=== PATIENT | female | born 1965 | race Caucasian/White ===

== ENCOUNTER 2019-06-22 13:31 | Outpatient (CLI) | payer OTHER, SELFPAY ==
--- NOTE | 2019-06-22 13:44 | XR_ITS ---
WS: [id number] PROCEDURE: XR chest 2V* [id number] CLINICAL INFORMATION: CHEST PAIN COMPARISON: None. FINDINGS: Heart: Normal cardiac silhouette. Lungs: Lungs are clear. No consolidation or pleural fluid. Chronic emphysematous changes. Incidental azygos fissure right upper lobe. Bones: Mild thoracic curve convex left. XR/XR chest 2V* [id number] IMPRESSION: No acute chest findings.
== END 2019-06-22 13:32 | disposition home or self-care (01) ==
PROVIDERS: Family Provider Family Medicine; PCP Family Medicine; Visit Provider Family Medicine
DX: R07.9 Chest pain, unspecified (principal)
CPT/HCPCS: 71046

== ENCOUNTER 2019-10-07 10:37 | Outpatient (CLI) | payer OTHER, SELFPAY ==
--- NOTE | 2019-10-07 | US_ITS ---
WS: [id number] BILATERAL DIGITAL DIAGNOSTIC MAMMOGRAM MAMMOGRAPHY WITH CAD CLINICAL INFORMATION: FOLLOW UP FROM 06/02 LT BREAST COMPARISON: 06/10/2018 and 06/04/2017 TECHNIQUE: Bilateral CC, MLO, and ML views. FINDINGS: The breasts are composed of heterogeneous fibroglandular density, which can limit the detection of sm all underlying mass lesions. New well-circumscribed 9 mm ovoid lesion upper outer right breast may represent a cyst and will be fu rther evaluated with ultrasound. Left breast is unchanged in appearance. ULTRASOUND BREAST BILATERAL TECHNIQUE: Ultrasound bilateral focused area of concern. CLINICAL INFORMATION: FOLLOW UP FROM 06/02 LT BREAST COMPARISON: None. FINDINGS: Ultrasound right breast at the 10:00 position. 2 cysts are visualized in this area. The lar gest measuring 9 x 7 mm and the smaller cyst measuring 3 x 4 mm. These have a simple benign appearanc e. Ultrasound left breast at the 10:00 position 1 cm from the nipple. Small cyst at the 10:00 position m easuring 10 x 8 mm. Additional tiny cyst at the 9:00 position measuring 4.9 x 3.5 mm. Additional well -circumscribed cyst at the 3:00 position measuring 3.7 x 3.8 mm. These have a benign appearance and r ecommend return to annual screening mammography. US/US breast BI limited* [id number] IMPRESSION: BI-RADS: 2-Benign FOLLOW UP: 1 Year Follow-up Recommend return to annual screening mammography.
--- NOTE | 2019-10-07 11:07 | MM_ITS ---
WS: [id number] BILATERAL DIGITAL DIAGNOSTIC MAMMOGRAM MAMMOGRAPHY WITH CAD CLINICAL INFORMATION: FOLLOW UP FROM 06/02 LT BREAST COMPARISON: 06/10/2018 and 06/04/2017 TECHNIQUE: Bilateral CC, MLO, and ML views. FINDINGS: The breasts are composed of heterogeneous fibroglandular density, which can limit the detection of sm all underlying mass lesions. New well-circumscribed 9 mm ovoid lesion upper outer right breast may represent a cyst and will be fu rther evaluated with ultrasound. Left breast is unchanged in appearance. ULTRASOUND BREAST BILATERAL TECHNIQUE: Ultrasound bilateral focused area of concern. CLINICAL INFORMATION: FOLLOW UP FROM 06/02 LT BREAST COMPARISON: None. FINDINGS: Ultrasound right breast at the 10:00 position. 2 cysts are visualized in this area. The lar gest measuring 9 x 7 mm and the smaller cyst measuring 3 x 4 mm. These have a simple benign appearanc e. Ultrasound left breast at the 10:00 position 1 cm from the nipple. Small cyst at the 10:00 position m easuring 10 x 8 mm. Additional tiny cyst at the 9:00 position measuring 4.9 x 3.5 mm. Additional well -circumscribed cyst at the 3:00 position measuring 3.7 x 3.8 mm. These have a benign appearance and r ecommend return to annual screening mammography. MM/[place] [id number] IMPRESSION: BI-RADS: 2-Benign FOLLOW UP: 1 Year Follow-up Recommend return to annual screening mammography.
== END 2019-10-07 10:38 | disposition home or self-care (01) ==
LOC: RADSHAW 10:37
PROVIDERS: Family Provider Family Medicine; PCP Family Medicine; Visit Provider Family Medicine
DX: N60.02 Solitary cyst of left breast (principal)
CPT/HCPCS: 76642; 77066

== ENCOUNTER 2020-03-05 09:57 | Emergency (ER) | payer OTHER, SELFPAY ==
[2020-03-05 10:04] VITALS: BP 121/80; PULSE 96; RESP 18; TEMP 37; O2SAT 95; BMI 24.8
--- NOTE | 2020-03-05 10:14 | ECG_ITS ---
[facility] Test Date: 2020-03-05 Pat Name: Melida Deal Department: Room: Gender: Female Rental Manager: : 1965 Requested By: Garcia Harmon Order Number: [id number] Liu MD: Yovanny Jack M.D. Measurements Intervals [place] Rate: 77 P: 67 AR: 156 QRS: 1 QRSD: 94 T: 47 QT: 367 QTc: 417 Interpretive Statements SINUS RHYTHM No previous ECG available for comparison Electronically Signed On 03-05-2020 19:05:40 CDT by Yovanny Jack M.D. [email or web address]
--- NOTE | 2020-03-05 10:19 | XRR_ITS ---
PROCEDURE INFORMATION: Exam: XR Chest, 1 View Exam date and time: 03/05/2020 10:54 AM Age: 54 years old Clinical indication: Smoker's cough; Additional info: Cough, covid positive TECHNIQUE: Imaging protocol: XR of the chest Views: 1 view. COMPARISON: CR XR chest 2V* [id number] 06/22/2019 1:55 PM FINDINGS: Lungs: Bilateral pulmonary opacities. No lobar consolidation. Pleural space: No pleural effusion. Heart/Mediastinum: Unremarkable. No cardiomegaly. Bones/joints: No acute findings. XR/XR chest 1V portable [id number] IMPRESSION: Bilateral pneumonia.
--- NOTE | 2020-03-05 10:25 | W.ED.CHESTPA ---
HPI - Chest Pain General: Chief Complaint: Chest Pain Stated Complaint: POSS COVID Time Seen by Provider: 03/05/20 10:14 History of Present Illness: HPI narrative: Patient arrives here with complaint about a productive cough that is turned to dry cough. Says she was seen by Dr. Casanova treated for sinus infection with Zithromax. Which she still taking. Did test positive last week at [facility] drive-through for COVID positive says she just did not feel good chest feels full. Says she is lost taste smell. Is also having diarrhea x4 days. History of COPD MD complaint: chest discomfort Onset (ago): day(s) Timing of current episode: constant Prior episodes: No Associated symptoms: Reports other (Diarrhea and cough also aches); Deny abdominal pain, dyspnea, fever(s), nausea or vomiting Treatment prior to arrival: other (Is on azithromycin) Review of Systems Const: Denies: fever(s), chills or body aches Eyes: Denies: change in vision or blurry vision ENMT: Denies: throat pain or nasal congestion Card: Denies: chest pain or dyspnea on exertion Resp: Reports: productive cough (Now nonproductive) and non-productive cough; Denies: dyspnea GI: Reports: diarrhea; Denies: abdominal pain, nausea or vomiting Musc: Denies: extremity pain Skin/Breast: Denies: rash Neuro: Denies: headache(s) Psych: Denies: anxiety or depression Arnold/Lymph: Denies: easy bruising Physical Exam Const: COMMON NORMALS: no acute distress, average body habitus and patient oriented x3 HENMT: COMMON NORMALS: normocephalic HEAD & SCALP: normal to inspection and normocephalic FACE & SINUS: normal facial exam Eye: COMMON NORMALS: conjunctivae normal GENERAL EYE: appearance normal, both eyes and all related structures CONJUNCTIVA: Yes conjunctivae normal Neck/C-Spine: COMMON NORMALS: no JVD Chest: COMMONS NORMALS: normal inspection of the chest Resp: COMMON NORMALS: normal respiratory effort Cardio: COMMON NORMALS: no JVD Extremity: COMMON NORMALS: normal to inspection and full ROM Neuro: COMMON NORMALS: patient oriented x3 Course Vital Signs: Vital signs: Vital Signs Temperature 98.6 F 03/05/20 10:04 Pulse Rate 75 03/05/20 11:59 Respiratory Rate 14 03/05/20 11:59 Blood Pressure 128/70 03/05/20 11:59 Pulse Oximetry 97 03/05/20 11:59 MDM - Chest Pain MDM Narrative: Medical decision making narrative: Discussed case with Dr. Coblert differential includes bacterial pneumonia bronchitis COPD COVID pneumonia. Patient is aware that if she worsens she is to follow back up here soon as possible Lab Data: Labs: Lab Results 03/05/20 03/05/20 03/05/20 Range/Units 10:30 10:45 10:45 WBC 5.0 (4.0-10.0) 10^3/ uL RBC 4.66 (4.1-5.3) 10^6/u L Hgb 13.8 (11.5-15.3) g/dL Hct 42.7 (37.0-47.0) % MCV 91.6 (81-99) fL MCH 29.6 (28.0-34.0) pg MCHC 32.3 (30.0-36.0) g/dL RDW 12.0 L (12.1-15.1) % Plt Count 179 (130-400) 10^3/c mm MPV 11.0 H (7.4-10.4) fL Neut % (Auto) 54.9 % Lymph % (Auto) 35.1 % [place] % (Auto) 9.4 % Eos % (Auto) 0.0 % Baso % (Auto) 0.4 % Neut # (Auto) 2.74 (1.8-7.7) 10^3/u L Lymph # (Auto) 1.8 (0.8-4.8) 10^3/u L [place] # (Auto) 0.5 (0.2-0.9) 10^3/u L Eos # (Auto) 0.0 (0.0-0.8) 10^3/u L Baso # (Auto) 0.0 (0.0-0.1) 10^3/u L Nucleated RBC % (a uto) 0 % Nucleated RBCs # 0.0 /100WBC D-Dimer (0-0.59) ug/mIFE U Sodium 141 (136-145) mmol/L Potassium 2.9 L (3.5-5.1) mmol/L Chloride 105 (98-107) mmol/L Carbon Dioxide 24 (22-29) mmol/L Anion Gap 14.9 (5-19) BUN 12 (6-20) mg/dL Creatinine 0.7 (0.5-0.9) mg/dL GFR Calculation 86.9 L (90-130) mL/min Glucose 124 H (65-115) mg/dL Calculated Osmolal ity 293 (285-295) mOsm/k g Lactate (0.5-2.2) mmol/L Calcium 8.6 (8.5-10.5) mg/dL Magnesium 1.9 (1.7-2.3) mg/dL Total Bilirubin 0.2 (0.15-1.2) mg/dL AST 26 (0-32) U/L ALT 21 (0-33) U/L Alkaline Phosphata se 75 (35-105) IU/L Troponin T Baselin e (0-10) ng/L C-Reactive Protein 5.6 H (0.0-4.9) mg/L NT-Pro-B Natriuret Pep 67 (0-125) pg/mL Total Protein 7.6 (6.6-8.7) g/dL Albumin 3.9 (3.5-5.2) g/dL Globulin 3.7 (1.3-4.6) g/dL Procalcitonin 0.04 (0-0.5) ng/mL Influenza Type A A g Negative (Negative) Influenza Type B A g Negative (Negative) 03/05/20 03/05/20 03/05/20 Range/Units 10:45 10:45 10:45 WBC (4.0-10.0) 10^3/ uL RBC (4.1-5.3) 10^6/u L Hgb (11.5-15.3) g/dL Hct (37.0-47.0) % MCV (81-99) fL MCH (28.0-34.0) pg MCHC (30.0-36.0) g/dL RDW (12.1-15.1) % Plt Count (130-400) 10^3/c mm MPV (7.4-10.4) fL Neut % (Auto) % Lymph % (Auto) % [place] % (Auto) % Eos % (Auto) % Baso % (Auto) % Neut # (Auto) (1.8-7.7) 10^3/u L Lymph # (Auto) (0.8-4.8) 10^3/u L [place] # (Auto) (0.2-0.9) 10^3/u L Eos # (Auto) (0.0-0.8) 10^3/u L Baso # (Auto) (0.0-0.1) 10^3/u L Nucleated RBC % (a uto) % Nucleated RBCs # /100WBC D-Dimer 0.40 (0-0.59) ug/mIFE U Sodium (136-145) mmol/L Potassium (3.5-5.1) mmol/L Chloride (98-107) mmol/L Carbon Dioxide (22-29) mmol/L Anion Gap (5-19) BUN (6-20) mg/dL Creatinine (0.5-0.9) mg/dL GFR Calculation (90-130) mL/min Glucose (65-115) mg/dL Calculated Osmolal ity (285-295) mOsm/k g Lactate 1.9 (0.5-2.2) mmol/L Calcium (8.5-10.5) mg/dL Magnesium (1.7-2.3) mg/dL Total Bilirubin (0.15-1.2) mg/dL AST (0-32) U/L ALT (0-33) U/L Alkaline Phosphata se (35-105) IU/L Troponin T Baselin e 6 (0-10) ng/L C-Reactive Protein (0.0-4.9) mg/L NT-Pro-B Natriuret Pep (0-125) pg/mL Total Protein (6.6-8.7) g/dL Albumin (3.5-5.2) g/dL Globulin (1.3-4.6) g/dL Procalcitonin (0-0.5) ng/mL Influenza Type A A g (Negative) Influenza Type B A g (Negative) EKG Data^: EKG 1: Interpretation: Normal sinus rhythm ventricular rate 77 bpm WV interval 156 ms QRS duration 94 ms Discharge Plan Discharge Patient Disposition: Home Clinical Impression: Hypokalemia, COVID-19 Condition: Stable Prescriptions: New potassium chloride 20 mEq tablet extended release 20 meq PO DAILY Qty: 14 RF: 0 Discharge Orders: Discharge Order (Routine); Ordered 03/05/20 Ordered By: Garcia Harmon Referrals: Sanket Briceño DO [Primary Care Provider] - Discharge Diet: Usual diet Discharge Activity: Increase activity as tolerated Patient Instructions: Hypokalemia (ED), Pneumonia - Viral Activity Restrictions/Additional Instructions: Follow-up with medical provider as directed. Take medications as prescribed. Return to the ER or your medical provider if condition worsens. Please read and understand discharge instructions. If any questions ask please. Follow-up here or with your family medical provider as needed. If you develop increasing shortness of breath worsening symptoms please return here to the ER Discharge Date/Time: 03/05/20 11:59 Coding Level of Care Code ED Reduction Furnace Operator Helper for Tomasa Mcguire Exam Comprehensive
[2020-03-05 10:52] LABS: Basophils % 0.4 %; Hematocrit 42.7 % (37.0-47.0); Hemoglobin 13.8 g/dL (11.5-15.3); Lymphocytes # 1.8 10^3/uL (0.8-4.8); Lymphocytes % 35.1 %; Mean Corpuscular HGB Conc 32.3 g/dL (30.0-36.0); Mean Corpuscular Hemoglobin 29.6 pg (28.0-34.0); Mean Corpuscular Volume 91.6 fL (81-99); Monocytes # 0.5 10^3/uL (0.2-0.9); Monocytes % 9.4 %; Neutrophils # 2.74 10^3/uL (1.8-7.7); Neutrophils % 54.9 %; Nucleated Red Blood Cells % 0 %; Platelet Count 179 10^3/cmm (130-400); Red Blood Count 4.66 10^6/uL (4.1-5.3)
[2020-03-05 11:14] LABS: Troponin(5th) Baseline 6 ng/L (0-10)
[2020-03-05 11:15] LABS: Lactate (Lactic Acid level) 1.9 mmol/L (0.5-2.2)
[2020-03-05 11:21] LABS: NT Pro B Type Natriuretic Pept 67 pg/mL (0-125); Procalcitonin 0.04 ng/mL (0-0.5)
[2020-03-05 11:24] LABS: Influenza A by IFA Negative (Negative); Influenza B by IFA Negative (Negative)
[2020-03-05 11:32] LABS: Alanine Aminotransferase 21 U/L (0-33); Albumin Level 3.9 g/dL (3.5-5.2); Alkaline Phosphatase 75 IU/L (35-105); Anion Gap 14.9 (5-19); Aspartate Amino Transferase 26 U/L (0-32); Blood Urea Nitrogen 12 mg/dL (6-20); C Reactive Protein 5.6 mg/L (0.0-4.9); Calcium 8.6 mg/dL (8.5-10.5); Carbon Dioxide 24 mmol/L (22-29); Chloride 105 mmol/L (98-107); Globulin 3.7 g/dL (1.3-4.6); Glomerular Filtration Rate 86.9 mL/min (90-130); Glucose 124 mg/dL (65-115); Magnesium 1.9 mg/dL (1.7-2.3); Osmolality Calculated 293 mOsm/kg (285-295); Sodium 141 mmol/L (136-145); Total Bilirubin 0.2 mg/dL (0.15-1.2); Total Protein 7.6 g/dL (6.6-8.7)
[2020-03-05 11:34] LABS: Potassium 2.9 mmol/L (3.5-5.1)
[2020-03-05 11:59] VITALS: BP 128/70; PULSE 75; RESP 14; O2SAT 97
[2020-03-06 23:23] LABS: Quest SARS-CoV-2 RNA DETECTED (NOT DETECTED)
== END 2020-03-05 11:59 | disposition home or self-care (01) ==
PROVIDERS: Emergency Provider Nurse Practitioner Family; PCP Family Medicine
DX: U07.1 COVID-19 (principal); E87.6 Hypokalemia
CPT/HCPCS: 12345; 36415; 71045; 80053; 83605; 83735; 83880; 84145; 84484; 85025; 85378; 86140; 87635; 87804; 93005; 99282; 99283

== ENCOUNTER 2020-03-09 11:00 | Emergency (ER) | payer OTHER, SELFPAY ==
--- NOTE | 2020-03-09 11:58 | XR_ITS ---
WS: [id number] CHEST XRAY TECHNIQUE: Portable chest. CLINICAL INFORMATION: COVID+, SOB COMPARISON: March 05, 2020 FINDINGS: Heart: Normal cardiac silhouette. Tortuous thoracic aorta. Lungs: Moderate chronic emphysematous changes. Hazy infiltrates in the mid and lower lungs bilaterall y right greater than left suspicious for pneumonia. Lung apices are well aerated. No focal consolidat ion. Bones: Thoracic curve convex left. XR/XR chest 1V portable [id number] IMPRESSION: Hazy infiltrates in the mid and lower lungs bilaterally suspicious for pneumoni a not significantly changed since March 05, 2020
[2020-03-09] MEDS: dexamethasone 4 mg/mL INJ 6 MG IVP (12:21)
[2020-03-09] MEDS: sodium chloride 0.9% 1,000 ML 999 ML IV ×2 (12:21→13:35)
[2020-03-09 12:28] VITALS: BP 129/74; PULSE 74; RESP 18; TEMP 36.7; O2SAT 93; BMI 24.8
[2020-03-09 12:34] LABS: Basophils % 0.4 %; Eosinophils % 0.2 %; Hematocrit 42.7 % (37.0-47.0); Lymphocytes # 1.8 10^3/uL (0.8-4.8); Lymphocytes % 35.4 %; Mean Corpuscular HGB Conc 32.8 g/dL (30.0-36.0); Mean Corpuscular Hemoglobin 29.9 pg (28.0-34.0); Mean Corpuscular Volume 91.2 fL (81-99); Monocytes # 0.6 10^3/uL (0.2-0.9); Monocytes % 11.4 %; Neutrophils # 2.61 10^3/uL (1.8-7.7); Neutrophils % 52.2 %; Nucleated Red Blood Cells % 0 %; Platelet Count 285 10^3/cmm (130-400); Red Blood Count 4.68 10^6/uL (4.1-5.3); Red Cell Distribution Width 11.9 % (12.1-15.1)
[2020-03-09 12:35] VITALS: BP 129/74; PULSE 75; RESP 18; TEMP 36.7; O2SAT 96
--- NOTE | 2020-03-09 12:36 | ED_ITS ---
HPI - Nausea/Vomiting/Diarrhea General: Chief complaint: Nausea/Vomiting/Diarrhea Stated complaint: sob Time Seen by Provider: 03/09/20 11:28 Source: patient Mode of arrival: ambulatory Limitations: no limitations History of Present Illness: HPI Narrative: About 11 days ago the patient was diagnosed with COVID-19, says she has been feeling unwell since then. She was treated with an antibiotic but did not get much better. Her main complaints are nausea and diarrhea. No vomiting. She just feels weak and unwell. No fever. She saw her primary care provider yesterday and he started her on doxycycline. The patient says she feels the doxycycline is working as she is getting better but because she is so weak she still comes here for evaluation. MD elicited complaint: nausea and diarrhea Pertinent past history: anorexia Onset (ago): day(s) (10) Description of diarrhea: semi-solid Associated nausea: Yes Associated abdominal pain: No Location of pain: Diffuse Quality: cramping Exacerbating factors: none Relieving factors: none Associated symtoms: Reports nausea; Denies altered mental status, change in vision, dysuria, headache(s) or palpitations Review of Systems General: Reports: 10 or more systems reviewed and unremarkable except in HPI and below Const: Denies: fever(s), chills or body aches Eyes: Denies: change in vision or blurry vision ENMT: Denies: throat pain, enlarged tonsils, odynophagia, hoarseness, mouth pain or swelling of lips/tongue Card: Denies: palpitations, irregular heart rhythm, edema or swelling of feet/ankles Resp: Denies: dyspnea, productive cough or non-productive cough GI: Reports: nausea : Denies: flank pain, difficulty voiding, dysuria, urinary frequency, urinary urgency or urinary hesitancy Musc: Denies: neck pain, back pain or extremity swelling Skin/Breast: Denies: rash, pruritus or erythema Neuro: Denies: headache(s), numbness in extremities or weakness in extremities Endo: Denies: polyuria, polydipsia or tired all the time Physical Exam Const: COMMON NORMALS: no acute distress, average body habitus, patient oriented x3, no limitations, healthy appearing, alert and well nourished EXAM LIMITATIONS: no altered mental status HENMT: COMMON NORMALS: normocephalic, atraumatic and moist oral mucous membranes HEAD & SCALP: normocephalic and atraumatic Neck/C-Spine: COMMON NORMALS: no meningeal signs and no JVD Resp: COMMON NORMALS: normal respiratory effort, No retractions, No use of accessory muscles, clear to auscultation bilaterally and percussion normal AUSCULTATION: clear to auscultation bilaterally PERCUSSION: percussion normal Cardio: COMMON NORMALS: no JVD, regular rate, regular rhythm, S1 normal heart sound present, S2 normal heart sound present, No gallops present (Cardio), No clicks present (Cardio), No murmurs present (Cardio), No rub (Cardio) and Peripheral pulses 2+ throughout RATE: regular rate RHYTHM: regular rhythm HEART SOUNDS: S1 normal heart sound present and S2 normal heart sound present PERIPHERAL PULSES: Peripheral pulses 2+ throughout GI: COMMON NORMALS: Normal to inspection, nondistended, normoactive bowel sounds present, Soft to palpation, non-tender, No hepatosplenomegaly present, no masses and no bruits PALPATION: Yes Soft to palpation and Yes No hepatosplenomegaly present Extremity: COMMON NORMALS: normal to inspection, full ROM, capillary refill normal, no calf tenderness and no pedal edema Neuro: COMMON NORMALS: patient oriented x3 SENSORIUM/ORIENTATION: Yes alert MENINGEAL SIGNS: Yes no meningeal signs Skin: COMMON NORMALS: no rashes or lesions noted, no wounds, turgor normal, no jaundice, no petechiae and no mottling GENERAL SKIN EXAM: no rashes or lesions noted and turgor normal Course Reevaluation(s): Reevaluation #1: Discussed her lab and imaging findings with her. She states that she feels a little better. Advised that her labs are not bad and did not show any signs of severe COVID. Also explained to her that her oxygen saturations about 90 to 99% on room air which is 1 of the major factors that we take into consideration when we trying to determine the severity of COVID. She is also not tachycardic. Chest x-ray still shows typical findings of bilateral pneumonia. She is starting to feel better with the doxycycline that her primary care started yesterday. She said he also gave her some steroids but she has been afraid to take it because she get some anxiety with steroids. I advised her that steroids may be beneficial for her since she has COVID and so she probably should start to take it. She also has mild hypokalemia and she states that she has oral potassium. She is advised to make sure she takes it. And to eat foods rich in potassium. Advised her to drink plenty of fluids, and she should follow-up with her primary care provider. She voiced understanding and all questions answered. Time: 13:38 Vital Signs: Vital signs: Vital Signs Temperature 98.1 F 03/09/20 12:35 Pulse Rate 71 03/09/20 13:34 Respiratory Rate 16 03/09/20 13:34 Blood Pressure 110/71 03/09/20 13:34 Pulse Oximetry 98 03/09/20 13:34 MDM - Nausea/Vomiting/Diarrhea MDM Narrative: Medical decision making narrative: 54-year-old female who was recently diagnosed with COVID-19 and who presents today with nonspecific symptoms of nausea and vomiting. Evaluation in the emergency department is unremarkable and no signs of acute decompensation. Vital signs have all been normal and lab work is unremarkable. She is therefore discharged home with no new orders. Her primary care provider has provided her with appropriate medications and she says she actually started to feel better before she came into the emergency department. Medical Records: Attestation: I reviewed the patient's medical records. Lab Data: Attestation: I reviewed the patient's lab results. Labs: Lab Results 03/09/20 03/09/20 03/09/20 Range/Units 12:05 12:05 12:05 WBC 5.0 (4.0-10.0) 10^3/ uL RBC 4.68 (4.1-5.3) 10^6/u L Hgb 14.0 (11.5-15.3) g/dL Hct 42.7 (37.0-47.0) % MCV 91.2 (81-99) fL MCH 29.9 (28.0-34.0) pg MCHC 32.8 (30.0-36.0) g/dL RDW 11.9 L (12.1-15.1) % Plt Count 285 (130-400) 10^3/c mm MPV 11.0 H (7.4-10.4) fL Neut % (Auto) 52.2 % Lymph % (Auto) 35.4 % [place] % (Auto) 11.4 % Eos % (Auto) 0.2 % Baso % (Auto) 0.4 % Neut # (Auto) 2.61 (1.8-7.7) 10^3/u L Lymph # (Auto) 1.8 (0.8-4.8) 10^3/u L [place] # (Auto) 0.6 (0.2-0.9) 10^3/u L Eos # (Auto) 0.0 (0.0-0.8) 10^3/u L Baso # (Auto) 0.0 (0.0-0.1) 10^3/u L Nucleated RBC % (a uto) 0 % Nucleated RBCs # 0.0 /100WBC Fibrinogen 610 H (174-498) mg/dL D-Dimer 0.54 (0-0.59) ug/mIFE U Sodium 138 (136-145) mmol/L Potassium 3.4 L (3.5-5.1) mmol/L Chloride 100 (98-107) mmol/L Carbon Dioxide 26 (22-29) mmol/L Anion Gap 15.4 (5-19) BUN 10 (6-20) mg/dL Creatinine 0.5 (0.5-0.9) mg/dL GFR Calculation 128.1 (90-130) mL/min Glucose 103 (65-115) mg/dL Calculated Osmolal ity 285 (285-295) mOsm/k g Lactic Acid (0.5-2.2) mmol/L Calcium 9.3 (8.5-10.5) mg/dL Total Bilirubin 0.4 (0.15-1.2) mg/dL AST 39 H (0-32) U/L ALT 49 H (0-33) U/L Alkaline Phosphata se 83 (35-105) IU/L Lactate Dehydrogen ase 245 H (135-214) U/L C-Reactive Protein 24.9 H (0.0-4.9) mg/L Total Protein 8.1 (6.6-8.7) g/dL Albumin 4.0 (3.5-5.2) g/dL Globulin 4.1 (1.3-4.6) g/dL 03/09/20 Range/Units 12:05 WBC (4.0-10.0) 10^3/ uL RBC (4.1-5.3) 10^6/u L Hgb (11.5-15.3) g/dL Hct (37.0-47.0) % MCV (81-99) fL MCH (28.0-34.0) pg MCHC (30.0-36.0) g/dL RDW (12.1-15.1) % Plt Count (130-400) 10^3/c mm MPV (7.4-10.4) fL Neut % (Auto) % Lymph % (Auto) % [place] % (Auto) % Eos % (Auto) % Baso % (Auto) % Neut # (Auto) (1.8-7.7) 10^3/u L Lymph # (Auto) (0.8-4.8) 10^3/u L [place] # (Auto) (0.2-0.9) 10^3/u L Eos # (Auto) (0.0-0.8) 10^3/u L Baso # (Auto) (0.0-0.1) 10^3/u L Nucleated RBC % (a uto) % Nucleated RBCs # /100WBC Fibrinogen (174-498) mg/dL D-Dimer (0-0.59) ug/mIFE U Sodium (136-145) mmol/L Potassium (3.5-5.1) mmol/L Chloride (98-107) mmol/L Carbon Dioxide (22-29) mmol/L Anion Gap (5-19) BUN (6-20) mg/dL Creatinine (0.5-0.9) mg/dL GFR Calculation (90-130) mL/min Glucose (65-115) mg/dL Calculated Osmolal ity (285-295) mOsm/k g Lactic Acid 1.4 (0.5-2.2) mmol/L Calcium (8.5-10.5) mg/dL Total Bilirubin (0.15-1.2) mg/dL AST (0-32) U/L ALT (0-33) U/L Alkaline Phosphata se (35-105) IU/L Lactate Dehydrogen ase (135-214) U/L C-Reactive Protein (0.0-4.9) mg/L Total Protein (6.6-8.7) g/dL Albumin (3.5-5.2) g/dL Globulin (1.3-4.6) g/dL Imaging Data^: CXR: Radiologist's impression: [address] [address] XRay Report Signed Patient: Melida Deal #: [id number] : 1965Acct#:[id number] Age/Sex: 54 / FADM Date: 03/09/20 Loc: ERRoom/Bed: Attending Dr: Ordering Provider/Ordering MD: Ry Price MD, [facility] [place] Date of Service: 03/09/20 Procedure(s): XR chest 1V portable [id number] Accession Number(s): [id number] Report Number: [id number] WS: [id number] CHEST XRAY TECHNIQUE: Portable chest. CLINICAL INFORMATION: COVID+, SOB COMPARISON: March 05, 2020 FINDINGS: Heart: Normal cardiac silhouette. Tortuous thoracic aorta. Lungs: Moderate chronic emphysematous changes. Hazy infiltrates in the mid and lower lungs bilaterally right greater than left suspicious for pneumonia. Lung apices are well aerated. No focal consolidation. Bones: Thoracic curve convex left. XR/XR chest 1V portable [id number] IMPRESSION: Hazy infiltrates in the mid and lower lungs bilaterally suspicious for pneumonia not significantly changed since March 05, 2020 Dictated By:Kali Alan MD Signed By:Kali Alan MDSigned Date/Time:03/09/201228 DD/ 1227 Discharge Plan Discharge Patient Disposition: Home Clinical Impression: Pneumonia due to COVID-19 virus, Hypokalemia Condition: Stable Prescriptions: Continued ondansetron HCl 4 mg tablet 4 mg PO Q4H PRN (Reason: Nausea) RF: 0 prednisone 20 mg tablet 20 mg PO DAILY RF: 0 Tylenol Arthritis Pain 650 mg Tablet Extended Release 1,300 mg PO PRN RF: 0 ibuprofen 200 mg Tablet 400 mg PO PRN RF: 0 montelukast 10 mg tablet 10 mg PO QPM RF: 0 fluticasone propionate 50 mcg/actuation spray,suspension 2 spray INTRANASAL DAILY PRN (Reason: unknown) RF: 0 doxycycline hyclate 100 mg tablet 100 mg PO BID RF: 0 potassium chloride 20 mEq tablet extended release 20 meq PO DAILY Qty: 14 RF: 0 Discharge Orders: Discharge Order (Routine); Ordered 03/09/20 Ordered By: Ry Price Referrals: Sanket Briceño DO [Primary Care Provider] - 1-3 days Discharge Diet: Advance as tolerated Discharge Activity: Increase activity as tolerated Patient Instructions: Viral Pneumonia (ED), Hypokalemia (ED) Activity Restrictions/Additional Instructions: Return for any new or worsening symptoms. Take the medications as prescribed by your primary care provider, including the steroid. Drink plenty of fluids to keep well-hydrated. Follow-up with your primary care provider within 3 days. Coding Level of Care Code ED Specialist Phys[employer] for [employer] Exam Comprehensive
[2020-03-09 12:43] LABS: D Dimer 0.54 ug/mIFEU (0-0.59)
[2020-03-09 12:45] LABS: Fibrinogen 610 mg/dL (174-498); Lactic Sepsis W/Reflex 1.4 mmol/L (0.5-2.2)
[2020-03-09 12:46] LABS: Alanine Aminotransferase 49 U/L (0-33); Alkaline Phosphatase 83 IU/L (35-105); Anion Gap 15.4 (5-19); Aspartate Amino Transferase 39 U/L (0-32); Blood Urea Nitrogen 10 mg/dL (6-20); C Reactive Protein 24.9 mg/L (0.0-4.9); Calcium 9.3 mg/dL (8.5-10.5); Carbon Dioxide 26 mmol/L (22-29); Chloride 100 mmol/L (98-107); Globulin 4.1 g/dL (1.3-4.6); Glomerular Filtration Rate 128.1 mL/min (90-130); Glucose 103 mg/dL (65-115); Lactate Dehydrogenase 245 U/L (135-214); Osmolality Calculated 285 mOsm/kg (285-295); Potassium 3.4 mmol/L (3.5-5.1); Sodium 138 mmol/L (136-145); Total Bilirubin 0.4 mg/dL (0.15-1.2); Total Protein 8.1 g/dL (6.6-8.7)
[2020-03-09 13:05] VITALS: BP 110/71; PULSE 75; RESP 18; O2SAT 99
[2020-03-09 13:34] VITALS: BP 110/71; PULSE 71; RESP 16; O2SAT 98
[2020-03-09 13:54] VITALS: BP 110/71; PULSE 72; RESP 18; TEMP 37.1; O2SAT 96
== END 2020-03-09 13:58 | disposition home or self-care (01) ==
PROVIDERS: Emergency Provider Family Medicine; PCP Family Medicine
DX: U07.1 COVID-19 (principal); J12.89 Other viral pneumonia; E87.6 Hypokalemia
CPT/HCPCS: 12345; 71045; 80053; 83605; 83615; 85025; 85378; 85384; 86140; 96361; 96374; 96375; 99283; 99284; J1100; J7030

== ENCOUNTER 2020-03-26 13:57 | Outpatient (CLI) | payer OTHER, SELFPAY ==
--- NOTE | 2020-03-26 14:03 | XR_ITS ---
WS: [id number] PROCEDURE: XR chest 2V* [id number] CLINICAL INFORMATION: SARS-ASSOCIATED CORONAVIRUS COMPARISON: March 09, 2020 FINDINGS: Heart: Normal cardiac silhouette. Lungs: Advanced chronic emphysematous changes. Previously described bibasilar infiltrates have resolv ed. No focal pneumonia or pleural fluid. Bones: Thoracic curve convex left. XR/XR chest 2V* [id number] IMPRESSION: 1. Advanced chronic emphysematous changes. 2. Previously described pulmonary infiltrates have resolved. No new infiltrate s.
== END 2020-03-26 13:58 | disposition home or self-care (01) ==
LOC: WPI 14:02
PROVIDERS: PCP Family Medicine; Visit Provider Family Medicine
DX: B97.21 SARS-associated coronavirus as the cause of diseases classified elsewhere (principal)
CPT/HCPCS: 71046

== ENCOUNTER 2020-10-02 14:59 | Outpatient (CLI) | payer OTHER, SELFPAY ==
--- NOTE | 2020-10-02 15:01 | MM_ITS ---
WS: [id number] BILATERAL DIGITAL SCREENING MAMMOGRAPHY WITH CAD CLINICAL INFORMATION: SCREENING HISTORY: Screening mammogram. No current complaints. COMPARISON: October 07, 2019 TECHNIQUE: Bilateral CC and MLO views. FINDINGS: The breasts are composed of heterogeneous fibroglandular density tissue, which can limit the detectio n of small underlying mass lesions. Previously described 9 mm right breast cyst has resolved. Smaller 4 mm ovoid cyst right breast is unchanged from the prior ultrasound. No suspicious mass, asymmetry, calcifications, or architectural distortion. No evidence of malignancy. MM/[place] [id number] IMPRESSION: BI-RADS: 2-Benign FOLLOW UP: 1 Year Follow-up Recommend return to annual screening mammography.
== END 2020-10-02 15:00 | disposition home or self-care (01) ==
LOC: RADSHAW 15:00
PROVIDERS: PCP Family Medicine; Visit Provider Family Medicine
DX: Z12.31 Encounter for screening mammogram for malignant neoplasm of breast (principal)
CPT/HCPCS: 77067

== ENCOUNTER 2021-06-04 16:33 | Emergency (ER) | payer OTHER, SELFPAY ==
--- NOTE | 2021-06-04 16:44 | XRR_ITS ---
PROCEDURE INFORMATION: Exam: XR Chest Exam date and time: 06/04/2021 4:44 PM Age: 55 years old Clinical indication: Cough; Additional info: Cough, congestion TECHNIQUE: Imaging protocol: XR of the chest. Views: 1 view. COMPARISON: CR XR chest 2V* [id number] 03/26/2020 2:10 PM FINDINGS: Lungs: Bilateral hilar to lower lobe atelectasis versus minimal infiltrate. Pleural spaces: Unremarkable. No pleural effusion. No pneumothorax. Heart/Mediastinum: Unremarkable. No cardiomegaly. Bones/joints: Unremarkable. XR/XR chest 1V portable [id number] IMPRESSION: Bilateral hilar to lower lobe atelectasis versus minimal infiltrate.
[2021-06-04 18:26] VITALS: BP 142/91; PULSE 94; RESP 20; TEMP 36.6; O2SAT 95; BMI 25.7
--- NOTE | 2021-06-04 18:31 | ECG_ITS ---
[facility] Test Date: 2021-06-04 Pat Name: Melida Deal Department: Room: Gender: Female Director Prison: : 1965 Requested By: Reece Pastor Order Number: [id number] Fernanda Hatfield MD: Caroline Rivera M.D. Measurements Intervals [place] Rate: 90 P: 70 MS: 149 QRS: 7 QRSD: 82 T: 37 QT: 347 QTc: 426 Interpretive Statements SINUS RHYTHM Compared to ECG 03/05/2020 10:29:00 No significant changes Electronically Signed On 06-04-2021 21:58:50 LOGISTICS ASSISTANT by Caroline Rivera M.D. [email or web address]
--- NOTE | 2021-06-04 18:32 | W.ED.SOB ---
Documented by User: SHA Lopez 06/04/21 19:47 HPI - SOB/Dyspnea General: Chief Complaint: Shortness of Breath/Dyspnea Stated Complaint: Cough, Congestion, Poss Inflammation doctor sent Time Seen by Provider: 06/04/21 19:27 History of Present Illness: HPI Narrative: Patient is a 55-year-old female comes to the ED with shortness of breath and cough. Her shortness of breath started today. For the last month she has been dealing with some upper respiratory symptoms with a cough nasal congestion and drainage and about 2 weeks ago she was put on an antibiotic to treat a possible pneumonia. She says some of her symptoms improved but she has continued to have a dry cough. Today she woke up having shortness of breath, body aches chills. Says shortness of breath gets worse when she is up moving around. She also describes feeling some pain in her lungs especially when she takes a deep breath. She tested for COVID-19 back on May 31 and it was negative. She contacted her PCP Dr. Banegas told him about her symptoms today and he recommended her coming to the ED for evaluation. MD elicited complaint: shortness of breath and cough Associated symptoms: Reports chest pain; Deny abdominal pain, fever(s), nausea, orthopnea, palpitations or vomiting Review of Systems Const: Denies: fever(s), chills or fatigue Eyes: Denies: change in vision or eye discomfort ENMT: Denies: throat pain, odynophagia, nasal discharge or nasal congestion Card: Reports: chest pain; Denies: palpitations, edema, swelling of feet/ankles, dyspnea on exertion or orthopnea Resp: Reports: dyspnea, non-productive cough and pain on inspiration; Denies: productive cough GI: Denies: abdominal pain, nausea, vomiting, diarrhea, constipation or hematochezia : Denies: flank pain, dysuria or hematuria Musc: Denies: neck pain, back pain or extremity swelling Skin/Breast: Denies: rash or new lesions Neuro: Denies: headache(s), numbness in extremities or weakness in extremities Physical Exam Const: COMMON NORMALS: no acute distress, patient oriented x3, healthy appearing and alert GENERAL APPEARANCE: cooperative and comfortable HENMT: COMMON NORMALS: normocephalic HEAD & SCALP: normocephalic MOUTH: Normal oral and palatal mucosa present THROAT: posterior oropharynx normal and uvula midline Neck/C-Spine: COMMON NORMALS: supple GENERAL: Yes normal visual inspection Resp: COMMON NORMALS: normal respiratory effort, No retractions, No use of accessory muscles and clear to auscultation bilaterally EFFORT & INSPECTION: Yes able to speak in complete sentences, Yes tachypneic (20 resp per min) and No labored AUSCULTATION: clear to auscultation bilaterally Cardio: COMMON NORMALS: regular rate, regular rhythm, S1 normal heart sound present, S2 normal heart sound present, No gallops present (Cardio), No clicks present (Cardio), No murmurs present (Cardio) and Peripheral pulses 2+ throughout RATE: regular rate RHYTHM: regular rhythm HEART SOUNDS: S1 normal heart sound present and S2 normal heart sound present PERIPHERAL PULSES: Peripheral pulses 2+ throughout GI: COMMON NORMALS: Normal to inspection, nondistended, normoactive bowel sounds present, Soft to palpation, non-tender and no masses PALPATION: Yes Soft to palpation : COMMON NORMALS: Yes no CVA tenderness BLADDER/KIDNEY EXAM: Yes no CVA tenderness Back/Pelvis: COMMON NORMALS: no CVA tenderness Extremity: COMMON NORMALS: normal to inspection Neuro: COMMON NORMALS: patient oriented x3 and moves all extremities SENSORIUM/ORIENTATION: Yes alert Skin: GENERAL SKIN EXAM: dry skin Course ED course: I performed the initial history physical exam, lab work-up and imaging for patient while they were being triaged. Patient appeared stable and in no acute distress. She was a little tachypneic but the rest of her vitals looked good. She was complaining of having some shortness of breath, dry cough and pleuritic chest pain. EKG and labs done in triage. Patient appears stable and can go back in the waiting room I told her we will get her in a room as soon as possible. Vital Signs: Vital signs: Vital Signs Temperature 97.8 F 06/04/21 18:26 Pulse Rate 89 06/04/21 21:01 Respiratory Rate 16 06/04/21 21:01 Blood Pressure 145/75 06/04/21 21:01 Pulse Oximetry 96 06/04/21 21:01 MDM - SOB/Dyspnea Lab Data: Labs: Lab Results 06/04/21 06/04/21 06/04/21 18:42 18:42 18:42 WBC 23.1 10^3/uL H 10 ^3/uL (4.0-10.0) RBC 4.60 10^6/uL 10^6 /uL (4.1-5.3) Hgb 13.7 g/dL g/dL (11.5-15.3) Hct 41.5 % % (37.0-47.0) MCV 90.2 fl fl (81-99) MCH 29.8 pg pg (28.0-34.0) MCHC 33.0 g/dL g/dL (30.0-36.0) RDW 12.4 % % (12.1-15.1) Plt Count 410 10^3/cmm H 10 ^3/cmm (130-400) MPV 10.2 fL fL (7.4-10.4) Neut % (Auto) 75.9 % % Lymph % (Auto) 16.2 % % [place] % (Auto) 5.9 % % Eos % (Auto) 1.0 % % Baso % (Auto) 0.5 % % Neut # (Auto) 17.53 10^3/uL H 1 0^3/uL (1.8-7.7) Lymph # (Auto) 3.7 10^3/uL 10^3/ uL (0.8-4.8) [place] # (Auto) 1.4 10^3/uL H 10^ 3/uL (0.2-0.9) Eos # (Auto) 0.2 10^3/uL 10^3/ uL (0.0-0.8) Baso # (Auto) 0.1 10^3/uL 10^3/ uL (0.0-0.1) Nucleated RBC % (a uto) 0 % % Nucleated RBCs # 0.0 /100WBC /100W BC Sodium 140 mmol/L mmol/L (136-145) Potassium 4.0 mmol/L mmol/L (3.5-5.1) Chloride 102 mmol/L mmol/L (98-107) Carbon Dioxide 23 mmol/L mmol/L (22-29) Anion Gap 19.0 (5-19) BUN 14 mg/dL mg/dL (6-20) Creatinine 0.8 mg/dL mg/dL (0.5-0.9) GFR Calculation 74.2 mL/min L mL/ min (90-130) Glucose 98 mg/dL mg/dL (65-115) Calculated Osmolal ity 290 mOsm/kg mOsm/ kg (285-295) Calcium 9.3 mg/dL mg/dL (8.5-10.5) Total Bilirubin 0.3 mg/dL mg/dL (0.15-1.2) AST 18 U/L U/L (0-32) ALT 14 U/L U/L (0-33) Alkaline Phosphata se 115 IU/L H IU/L (35-105) Troponin T Baselin e 6 ng/L ng/L (0-10) Total Protein 7.8 g/dL g/dL (6.6-8.7) Albumin 4.3 g/dL g/dL (3.5-5.2) Globulin 3.5 g/dL g/dL (1.3-4.6) Coronavirus 229E ( PCR) SARS-CoV-2 (PCR) 06/04/21 19:40 WBC RBC Hgb Hct MCV MCH MCHC RDW Plt Count MPV Neut % (Auto) Lymph % (Auto) [place] % (Auto) Eos % (Auto) Baso % (Auto) Neut # (Auto) Lymph # (Auto) [place] # (Auto) Eos # (Auto) Baso # (Auto) Nucleated RBC % (a uto) Nucleated RBCs # Sodium Potassium Chloride Carbon Dioxide Anion Gap BUN Creatinine GFR Calculation Glucose Calculated Osmolal ity Calcium Total Bilirubin AST ALT Alkaline Phosphata se Troponin T Baselin e Total Protein Albumin Globulin Coronavirus 229E ( PCR) Not detected (NOT DETECT) SARS-CoV-2 (PCR) Not detected (NOT DETECT) Discharge Plan Discharge Patient Disposition: Home Clinical Impression: Pneumonia, Lung nodule Condition: Stable Prescriptions: New Augmentin 875-125 mg tablet 1 tab PO BID 10 Days Qty: 20 RF: 0 doxycycline hyclate 100 mg capsule 100 mg PO BID 10 Days Qty: 20 RF: 0 No Action ondansetron HCl 4 mg tablet 4 mg PO Q4H PRN (Reason: Nausea) RF: 0 prednisone 20 mg tablet 20 mg PO DAILY RF: 0 Tylenol Arthritis Pain 650 mg Tablet Extended Release 1,300 mg PO PRN RF: 0 ibuprofen 200 mg Tablet 400 mg PO PRN RF: 0 montelukast 10 mg tablet 10 mg PO QPM RF: 0 fluticasone propionate 50 mcg/actuation spray,suspension 2 spray INTRANASAL DAILY PRN (Reason: unknown) RF: 0 doxycycline hyclate 100 mg tablet 100 mg PO BID RF: 0 potassium chloride 20 mEq tablet extended release 20 meq PO DAILY Qty: 14 RF: 0 Discharge Orders: Discharge ED (Routine); Ordered 06/04/21 Ordered By: Chris Astorga Referrals: Sanket Briceño, [Primary Care Provider] - Discharge Diet: Advance as tolerated Discharge Activity: Resume usual activity Patient Instructions: Pneumonitis (ED) Activity Restrictions/Additional Instructions: Please come back to the emergency room for any fever or chills, difficulty breathing, inability to hold food or drinks down, or any new or concerning complaints Please take your antibiotics as instructed. Watch out for signs of skin changes/redness, mouth redeness or swelling, nausea/vomiting, diarrhea, blood in the urine or any new or concering complaints. Follow-up with Dr. Briceño in the next 48 to 72 hours for reassessment on new antibiotics. Here's your CT report. Please follow up with your primary care provider for evaluation of lung nodule: [facility] [address]PR Scan ReportSigned Patient: Melida Deal #: [id number]: 1965Acct#:[id number]/Sex: 55 / FADM Date: 06/04/21Loc: [facility]/Bed:Attending Dr: Ordering Provider/Ordering MD: Chris Astorga MD Date of Service: 06/04/21 Procedure(s): CT angio chest PE protcl [id number] Accession Number(s): [id number] Report Number: [id number] PROCEDURE INFORMATION: Exam: CTA Chest With Contrast Exam date and time: 06/04/2021 8:53 PM Age: 55 years old Clinical indication: Shortness of breath; Additional info: Eval pe TECHNIQUE: Imaging protocol: Computed tomographic angiography of the chest with contrast. 3D rendering (Not supervised by radiologist): MIP and/or 3D reconstructed images were created by the technologist. Radiation optimization: All CT scans at this facility use at least one of these dose optimization techniques: automated exposure control; mA and/or kV adjustment per patient size (includes targeted exams where dose is matched to clinical indication); or iterative reconstruction. Contrast material: OMNI 350; Contrast volume: 67 ml; Contrast route: INTRAVENOUS (IV); COMPARISON: CR XR chest 1V portable [id number] 06/04/2021 4:49 PM RADIATION DOSE METRICS: Total DLP (mGy-cm): 550.38 FINDINGS: Pulmonary arteries: Normal. No pulmonary emboli. Aorta: Unremarkable. No aortic aneurysm. No aortic dissection. Lungs: Right upper lobe 10 mm pulmonary nodule abutting the posterior pleural surface. Azygos fissure, normal variant. Bilateral largely lower lung field atelectasis versus minimal infiltrate. Very mild largely central bilateral bronchiectasis. Pleural spaces: Unremarkable. No pneumothorax. No pleural effusion. Heart: Cardiomegaly. Lymph nodes: Unremarkable. No enlarged lymph nodes. Bones/joints: Unremarkable. No acute fracture. Soft tissues: Unremarkable. CT/CT angio chest PE protcl [id number] IMPRESSION: 1. Negative for pulmonary embolus 2. Right upper lobe 10 mm pulmonary nodule abutting the posterior pleural surface. Highly suspicious nodule(s). Consider non-emergent PET/CT, or tissue sampling.(Reference: Mini) 3. Azygos fissure, normal variant. 4. Bilateral largely lower lung field atelectasis versus minimal infiltrate. 5. Cardiomegaly. 6. Very mild largely central bilateral bronchiectasis. REFERENCES: Mini H, et al. Guidelines for Management of Incidental Pulmonary Nodules Detected on CT Images: From the Fleischner Society 2017. Radiology. 2017;284(1):228-243. Dictated By:Yuri Szymanski MDSigned By:Yuri Szymanski MDSigned Date/Time:06/04/212129DD/ 52 Coding Level of Care Code ED [employer] Officer for Chg Fwd Exam Comprehensive Documented by User: Chris Astorga MD 06/04/21 21:42 HPI - SOB/Dyspnea General: Chief Complaint: Shortness of Breath/Dyspnea Stated Complaint: Cough, Congestion, Poss Inflammation doctor sent Time Seen by Provider: 06/04/21 19:27 History of Present Illness: HPI Narrative: 55-year-old female presenting to the emergency room for evaluation of dyspnea x3 weeks intermittently improved with antibiotics. Was sent to the emergency room at the request of Dr. Briceño for evaluation of other pathologies including blood clots. Course Vital Signs: Vital signs: Vital Signs Temperature 97.8 F 06/04/21 18:26 Pulse Rate 89 06/04/21 21:01 Respiratory Rate 16 06/04/21 21:01 Blood Pressure 145/75 06/04/21 21:01 Pulse Oximetry 96 06/04/21 21:01 MDM - SOB/Dyspnea MDM Narrative: Medical decision making narrative: 65-year-old female who presents the emergency for evaluation of worsening cough, chest tightness x 3 weeks with some intermittent improvement. On arrival, patient has clear lung sounds to auscultation. Signs of increased work of breathing. Patient sats greater than 95% on room air. Workup today showed white count 23.1K up from baseline of 5K from prior. Chest x-ray showed minimal infiltrates bilaterally. PCR is negative. At present time, patient has no signs of increased work of breathing, hypoxemia. I suspect that WBC may be related to underlying pneumonia. Given persistence of disease and high leukocytosis in thed absence of recent antibiotics use, patient will be treated with multiple regimens at this time. Patient is aware that she needs to follow-up with Dr. Briceño in the next 48 to 72 hours for repeat blood work to ensure that her white count is going down Doubt ACS/PE or other emergent causes of chest pain. No suspicion for aortic dissection given no widened mediastinum, 2+ upper extremity pulses, or tearing pain. No suspicion for PE given normal CTA. EKG is non-ischemic. XR normal. Incidental findings of pulmonary discussed extensively with patient. Patient received a copy of the CT report with the documented findings. Patient is instructed to follow up urgently with specialists. Rx augmentin BID x 10 days and doxycycline BID x 10 days Disposition: Discharge. Patient counseled regarding diagnostic impression, treatment plan. Patient given ED strict return precautions to return for continuation, worsening, or development of new symptoms. Instructed to f/u w/ PCP regarding symptoms today. Patient verbalized understanding. Lab Data: Labs: Lab Results 06/04/21 06/04/21 06/04/21 18:42 18:42 18:42 WBC 23.1 10^3/uL H 10 ^3/uL (4.0-10.0) RBC 4.60 10^6/uL 10^6 /uL (4.1-5.3) Hgb 13.7 g/dL g/dL (11.5-15.3) Hct 41.5 % % (37.0-47.0) MCV 90.2 fl fl (81-99) MCH 29.8 pg pg (28.0-34.0) MCHC 33.0 g/dL g/dL (30.0-36.0) RDW 12.4 % % (12.1-15.1) Plt Count 410 10^3/cmm H 10 ^3/cmm (130-400) MPV 10.2 fL fL (7.4-10.4) Neut % (Auto) 75.9 % % Lymph % (Auto) 16.2 % % [place] % (Auto) 5.9 % % Eos % (Auto) 1.0 % % Baso % (Auto) 0.5 % % Neut # (Auto) 17.53 10^3/uL H 1 0^3/uL (1.8-7.7) Lymph # (Auto) 3.7 10^3/uL 10^3/ uL (0.8-4.8) [place] # (Auto) 1.4 10^3/uL H 10^ 3/uL (0.2-0.9) Eos # (Auto) 0.2 10^3/uL 10^3/ uL (0.0-0.8) Baso # (Auto) 0.1 10^3/uL 10^3/ uL (0.0-0.1) Nucleated RBC % (a uto) 0 % % Nucleated RBCs # 0.0 /100WBC /100W BC Sodium 140 mmol/L mmol/L (136-145) Potassium 4.0 mmol/L mmol/L (3.5-5.1) Chloride 102 mmol/L mmol/L (98-107) Carbon Dioxide 23 mmol/L mmol/L (22-29) Anion Gap 19.0 (5-19) BUN 14 mg/dL mg/dL (6-20) Creatinine 0.8 mg/dL mg/dL (0.5-0.9) GFR Calculation 74.2 mL/min L mL/ min (90-130) Glucose 98 mg/dL mg/dL (65-115) Calculated Osmolal ity 290 mOsm/kg mOsm/ kg (285-295) Calcium 9.3 mg/dL mg/dL (8.5-10.5) Total Bilirubin 0.3 mg/dL mg/dL (0.15-1.2) AST 18 U/L U/L (0-32) ALT 14 U/L U/L (0-33) Alkaline Phosphata se 115 IU/L H IU/L (35-105) Troponin T Baselin e 6 ng/L ng/L (0-10) Total Protein 7.8 g/dL g/dL (6.6-8.7) Albumin 4.3 g/dL g/dL (3.5-5.2) Globulin 3.5 g/dL g/dL (1.3-4.6) Coronavirus 229E ( PCR) SARS-CoV-2 (PCR) 06/04/21 19:40 WBC RBC Hgb Hct MCV MCH MCHC RDW Plt Count MPV Neut % (Auto) Lymph % (Auto) [place] % (Auto) Eos % (Auto) Baso % (Auto) Neut # (Auto) Lymph # (Auto) [place] # (Auto) Eos # (Auto) Baso # (Auto) Nucleated RBC % (a uto) Nucleated RBCs # Sodium Potassium Chloride Carbon Dioxide Anion Gap BUN Creatinine GFR Calculation Glucose Calculated Osmolal ity Calcium Total Bilirubin AST ALT Alkaline Phosphata se Troponin T Baselin e Total Protein Albumin Globulin Coronavirus 229E ( PCR) Not detected (NOT DETECT) SARS-CoV-2 (PCR) Not detected (NOT DETECT) Imaging Data^: Other Imaging: Radiologist's impression: [address] [address]YOjw ReportSigned Patient: Melida Deal #: [id number]: 1965Acct#:[id number]/Sex: 55 / FADM Date: 06/04/21Loc: [facility]/Bed:Attending Dr: Ordering Provider/Ordering MD: Cora Prado Date of Service: 06/04/21 Procedure(s): XR chest 1V portable [id number] Accession Number(s): [id number] Report Number: [id number] PROCEDURE INFORMATION: Exam: XR Chest Exam date and time: 06/04/2021 4:44 PM Age: 55 years old Clinical indication: Cough; Additional info: Cough, congestion TECHNIQUE: Imaging protocol: XR of the chest. Views: 1 view. COMPARISON: CR XR chest 2V* [id number] 03/26/2020 2:10 PM FINDINGS: Lungs: Bilateral hilar to lower lobe atelectasis versus minimal infiltrate. Pleural spaces: Unremarkable. No pleural effusion. No pneumothorax. Heart/Mediastinum: Unremarkable. No cardiomegaly. Bones/joints: Unremarkable. XR/XR chest 1V portable [id number] IMPRESSION: Bilateral hilar to lower lobe atelectasis versus minimal infiltrate. Dictated By:Yuri Szymanski MDSigned By:Yuri Szymanski MDSigned Date/Time:06/04/21 1808DD/ [address] [address]KG Scan ReportSigned Patient: Melida Deal #: [id number]: 1965Acct#:[id number]/Sex: 55 / FADM Date: 06/04/21Loc: [facility]/Bed:Attending Dr: Ordering Provider/Ordering MD: Chris Astorga MD Date of Service: 06/04/21 Procedure(s): CT angio chest PE protcl [id number] Accession Number(s): [id number] Report Number: [id number] PROCEDURE INFORMATION: Exam: CTA Chest With Contrast Exam date and time: 06/04/2021 8:53 PM Age: 55 years old Clinical indication: Shortness of breath; Additional info: Eval pe TECHNIQUE: Imaging protocol: Computed tomographic angiography of the chest with contrast. 3D rendering (Not supervised by radiologist): MIP and/or 3D reconstructed images were created by the technologist. Radiation optimization: All CT scans at this facility use at least one of these dose optimization techniques: automated exposure control; mA and/or kV adjustment per patient size (includes targeted exams where dose is matched to clinical indication); or iterative reconstruction. Contrast material: OMNI 350; Contrast volume: 67 ml; Contrast route: INTRAVENOUS (IV); COMPARISON: CR XR chest 1V portable [id number] 06/04/2021 4:49 PM RADIATION DOSE METRICS: Total DLP (mGy-cm): 550.38 FINDINGS: Pulmonary arteries: Normal. No pulmonary emboli. Aorta: Unremarkable. No aortic aneurysm. No aortic dissection. Lungs: Right upper lobe 10 mm pulmonary nodule abutting the posterior pleural surface. Azygos fissure, normal variant. Bilateral largely lower lung field atelectasis versus minimal infiltrate. Very mild largely central bilateral bronchiectasis. Pleural spaces: Unremarkable. No pneumothorax. No pleural effusion. Heart: Cardiomegaly. Lymph nodes: Unremarkable. No enlarged lymph nodes. Bones/joints: Unremarkable. No acute fracture. Soft tissues: Unremarkable. CT/CT angio chest PE protcl [id number] IMPRESSION: 1. Negative for pulmonary embolus 2. Right upper lobe 10 mm pulmonary nodule abutting the posterior pleural surface. Highly suspicious nodule(s). Consider non-emergent PET/CT, or tissue sampling.(Reference: Mini) 3. Azygos fissure, normal variant. 4. Bilateral largely lower lung field atelectasis versus minimal infiltrate. 5. Cardiomegaly. 6. Very mild largely central bilateral bronchiectasis. REFERENCES: Mini Gutierrez, et al. Guidelines for Management of Incidental Pulmonary Nodules Detected on CT Images: From the Fleischner Society 2017. Radiology. 2017;284(1):228-243. Dictated By:Yuri Szymanski MDSigned By:Yuri Szymanski MDSigned Date/Time:06/04/212129DD/ 52 Discharge Plan Discharge Patient Disposition: Home Clinical Impression: Pneumonia, Lung nodule Condition: Stable Prescriptions: New Augmentin 875-125 mg tablet 1 tab PO BID 10 Days Qty: 20 RF: 0 doxycycline hyclate 100 mg capsule 100 mg PO BID 10 Days Qty: 20 RF: 0 No Action ondansetron HCl 4 mg tablet 4 mg PO Q4H PRN (Reason: Nausea) RF: 0 prednisone 20 mg tablet 20 mg PO DAILY RF: 0 Tylenol Arthritis Pain 650 mg Tablet Extended Release 1,300 mg PO PRN RF: 0 ibuprofen 200 mg Tablet 400 mg PO PRN RF: 0 montelukast 10 mg tablet 10 mg PO QPM RF: 0 fluticasone propionate 50 mcg/actuation spray,suspension 2 spray INTRANASAL DAILY PRN (Reason: unknown) RF: 0 doxycycline hyclate 100 mg tablet 100 mg PO BID RF: 0 potassium chloride 20 mEq tablet extended release 20 meq PO DAILY Qty: 14 RF: 0 Discharge Orders: Discharge ED (Routine); Ordered 06/04/21 Ordered By: Chris Astorga Referrals: Sanket Briceño DO [Primary Care Provider] - Discharge Diet: Advance as tolerated Discharge Activity: Resume usual activity Patient Instructions: Pneumonitis (ED) Activity Restrictions/Additional Instructions: Please come back to the emergency room for any fever or chills, difficulty breathing, inability to hold food or drinks down, or any new or concerning complaints Please take your antibiotics as instructed. Watch out for signs of skin changes/redness, mouth redeness or swelling, nausea/vomiting, diarrhea, blood in the urine or any new or concering complaints. Follow-up with Dr. Briceño in the next 48 to 72 hours for reassessment on new antibiotics. Here's your CT report. Please follow up with your primary care provider for evaluation of lung nodule: [address] [address]NC Scan ReportSigned Patient: Melida Deal #: [id number]: 1965Acct#:[id number]/Sex: 55 / FADM Date: 06/04/21Loc: [facility]/Bed:Attending Dr: Ordering Provider/Ordering MD: Chris Astorga MD Date of Service: 06/04/21 Procedure(s): CT angio chest PE protcl [id number] Accession Number(s): [id number] Report Number: [id number] PROCEDURE INFORMATION: Exam: CTA Chest With Contrast Exam date and time: 06/04/2021 8:53 PM Age: 55 years old Clinical indication: Shortness of breath; Additional info: Eval pe TECHNIQUE: Imaging protocol: Computed tomographic angiography of the chest with contrast. 3D rendering (Not supervised by radiologist): MIP and/or 3D reconstructed images were created by the technologist. Radiation optimization: All CT scans at this facility use at least one of these dose optimization techniques: automated exposure control; mA and/or kV adjustment per patient size (includes targeted exams where dose is matched to clinical indication); or iterative reconstruction. Contrast material: OMNI 350; Contrast volume: 67 ml; Contrast route: INTRAVENOUS (IV); COMPARISON: CR XR chest 1V portable [id number] 06/04/2021 4:49 PM RADIATION DOSE METRICS: Total DLP (mGy-cm): 550.38 FINDINGS: Pulmonary arteries: Normal. No pulmonary emboli. Aorta: Unremarkable. No aortic aneurysm. No aortic dissection. Lungs: Right upper lobe 10 mm pulmonary nodule abutting the posterior pleural surface. Azygos fissure, normal variant. Bilateral largely lower lung field atelectasis versus minimal infiltrate. Very mild largely central bilateral bronchiectasis. Pleural spaces: Unremarkable. No pneumothorax. No pleural effusion. Heart: Cardiomegaly. Lymph nodes: Unremarkable. No enlarged lymph nodes. Bones/joints: Unremarkable. No acute fracture. Soft tissues: Unremarkable. CT/CT angio chest PE protcl [id number]
[2021-06-04 18:49] LABS: Basophils # 0.1 10^3/uL (0.0-0.1); Basophils % 0.5 %; Eosinophils # 0.2 10^3/uL (0.0-0.8); Hematocrit 41.5 % (37.0-47.0); Hemoglobin 13.7 g/dL (11.5-15.3); Lymphocytes # 3.7 10^3/uL (0.8-4.8); Lymphocytes % 16.2 %; Mean Corpuscular Hemoglobin 29.8 pg (28.0-34.0); Mean Corpuscular Volume 90.2 fl (81-99); Mean Platelet Volume 10.2 fL (7.4-10.4); Monocytes # 1.4 10^3/uL (0.2-0.9); Monocytes % 5.9 %; Neutrophils # 17.53 10^3/uL (1.8-7.7); Neutrophils % 75.9 %; Nucleated Red Blood Cells % 0 %; Platelet Count 410 10^3/cmm (130-400); Red Cell Distribution Width 12.4 % (12.1-15.1); White Blood Count 23.1 10^3/uL (4.0-10.0)
[2021-06-04 19:12] LABS: Alanine Aminotransferase 14 U/L (0-33); Albumin Level 4.3 g/dL (3.5-5.2); Alkaline Phosphatase 115 IU/L (35-105); Aspartate Amino Transferase 18 U/L (0-32); Blood Urea Nitrogen 14 mg/dL (6-20); Calcium 9.3 mg/dL (8.5-10.5); Carbon Dioxide 23 mmol/L (22-29); Chloride 102 mmol/L (98-107); Globulin 3.5 g/dL (1.3-4.6); Glomerular Filtration Rate 74.2 mL/min (90-130); Glucose 98 mg/dL (65-115); Osmolality Calculated 290 mOsm/kg (285-295); Sodium 140 mmol/L (136-145); Total Bilirubin 0.3 mg/dL (0.15-1.2); Total Protein 7.8 g/dL (6.6-8.7)
[2021-06-04 19:13] LABS: Troponin(5th) Baseline 6 ng/L (0-10)
--- NOTE | 2021-06-04 20:53 | CTR_ITS ---
PROCEDURE INFORMATION: Exam: CTA Chest With Contrast Exam date and time: 06/04/2021 8:53 PM Age: 55 years old Clinical indication: Shortness of breath; Additional info: Eval pe TECHNIQUE: Imaging protocol: Computed tomographic angiography of the chest with contrast. 3D rendering (Not supervised by radiologist): MIP and/or 3D reconstructed images were created by the technologist. Radiation optimization: All CT scans at this facility use at least one of these dose optimization techniques: automated exposure control; mA and/or kV adjustment per patient size (includes targeted exams where dose is matched to clinical indication); or iterative reconstruction. Contrast material: OMNI 350; Contrast volume: 67 ml; Contrast route: INTRAVENOUS (IV); COMPARISON: CR XR chest 1V portable [id number] 06/04/2021 4:49 PM RADIATION DOSE METRICS: Total DLP (mGy-cm): 550.38 FINDINGS: Pulmonary arteries: Normal. No pulmonary emboli. Aorta: Unremarkable. No aortic aneurysm. No aortic dissection. Lungs: Right upper lobe 10 mm pulmonary nodule abutting the posterior pleural surface. Azygos fissure, normal variant. Bilateral largely lower lung field atelectasis versus minimal infiltrate. Very mild largely central bilateral bronchiectasis. Pleural spaces: Unremarkable. No pneumothorax. No pleural effusion. Heart: Cardiomegaly. Lymph nodes: Unremarkable. No enlarged lymph nodes. Bones/joints: Unremarkable. No acute fracture. Soft tissues: Unremarkable. CT/CT angio chest PE protcl [id number] IMPRESSION: 1. Negative for pulmonary embolus 2. Right upper lobe 10 mm pulmonary nodule abutting the posterior pleural surface. Highly suspicious nodule(s). Consider non-emergent PET/CT, or tissue sampling.(Reference: Mini) 3. Azygos fissure, normal variant. 4. Bilateral largely lower lung field atelectasis versus minimal infiltrate. 5. Cardiomegaly. 6. Very mild largely central bilateral bronchiectasis. REFERENCES: Mini Gutierrez et al. Guidelines for Management of Incidental Pulmonary Nodules Detected on CT Images: From the Fleischner Society 2017. Radiology. 2017;284(1):228-243.
[2021-06-04] MEDS: amoxicillin-clav 875-125 mg Tablet 1 TAB PO (20:58)
[2021-06-04] MEDS: doxycycline 100 mg Tablet PO (20:58)
[2021-06-04 21:01] VITALS: BP 145/75; PULSE 89; RESP 16; O2SAT 96
[2021-06-04] MEDS: iohexol 350 mg/mL 100 mL Btl IV (21:19)
[2021-06-04 21:28] LABS: Adenovirus Not Detected (NOT DETECT); Chlamydia Pneumoniae Not Detected (NOT DETECT); Coronavirus 229E,HKU1,NL63,OC4 Not Detected (NOT DETECT); Human Metapneumovirus Not Detected (NOT DETECT); Human Rhinovirus/Enterovirus Not Detected (NOT DETECT); Influenza A Not Detected (NOT DETECT); Influenza A H1 Not Detected (NOT DETECT); Influenza A H1-2009 Not Detected (NOT DETECT); Influenza A H3 Not Detected (NOT DETECT); Influenza B Not Detected (NOT DETECT); Mycoplasma Pneumoniae Not Detected (NOT DETECT); Parainfluenza Virus Type 1 Not Detected (NOT DETECT); Parainfluenza Virus Type 2 Not Detected (NOT DETECT); Parainfluenza Virus Type 3 Not Detected (NOT DETECT); Parainfluenza Virus Type 4 Not Detected (NOT DETECT); Respiratory Syncytial Virus A Not Detected (NOT DETECT); Respiratory Syncytial Virus B Not Detected (NOT DETECT); SARS-COV-2 Not Detected (NOT DETECT)
[2021-06-04 22:00] VITALS: BP 132/68; PULSE 91; RESP 16; O2SAT 95
== END 2021-06-04 22:00 | disposition home or self-care (01) ==
PROVIDERS: Physician Assistant; Emergency Provider Emergency Medicine; PCP Family Medicine
DX: J18.9 Pneumonia, unspecified organism (principal); R91.8 Other nonspecific abnormal finding of lung field
CPT/HCPCS: 36415; 71045; 71275; 80053; 84484; 85025; 87635; 93005; 99283; Q9967

== ENCOUNTER 2021-07-01 13:35 | Outpatient (CLI) | payer OTHER, SELFPAY ==
--- NOTE | 2021-07-01 13:47 | XR_ITS ---
WS: [email or web address] Exam: XR chest 2V* [id number] Date/Time of Exam: 07/01/2021 1:54 PM Reason For Exam: COUGH Comparison 06/04/2021. The lungs are hyperinflated and clear. Normal cardiomediastinal silhouette. No pleural effusions. Lev oscoliosis of the upper T-spine. XR/XR chest 2V* [id number] IMPRESSION: 1. Pulmonary hyperinflation. No acute process noted.
== END 2021-07-01 13:36 | disposition home or self-care (01) ==
PROVIDERS: PCP Family Medicine; Visit Provider Clinical Nurse Specialist Adult Health
DX: R05.9 Cough, unspecified (principal)
CPT/HCPCS: 71046

== ENCOUNTER → 2021-09-03 14:17 | Outpatient (BNVA) | payer OTHER, SELFPAY | PROVIDERS: PCP Family Medicine; Visit Provider Internal Medicine Pulmonary Disease | DX: U07.1 COVID-19 (principal); J45.909 Unspecified asthma, uncomplicated; R06.02 Shortness of breath | CPT/HCPCS: 36415; 82785; 85025; 86003 ==

== ENCOUNTER 2021-09-20 14:25 | Outpatient (CLI) | payer OTHER, SELFPAY ==
--- NOTE | 2021-09-20 14:30 | CT_ITS ---
WS: [id number] CT CHEST WITHOUT INTRAVENOUS CONTRAST HISTORY: FOLLOW UP ON RIGHT UPPER LOBE NODULE TECHNIQUE: Contiguous 5 mm axial imaging performed on the thorax. Coronal and sagittal reformats are submitted. All CT scans at [facility] use at least one of these dose optimization techniques: automated exposure control; mA and/or kV adjustment per patient size (includes targeted exams where dose is matched to clinical indication); or iterative reconstruction. CONTRAST: None DLP: 615.31 mGy.cm COMPARISON: 06/04/2021 Lungs and central airway: Lungs are hyperinflated. Well-circumscribed ovoid nodule abuts the pleura i n the posterior RIGHT upper lobe. Nodule measures 9 x 6 mm. The nodule appears slightly more consolid ated than on the prior studies but the size has not significantly increased. No additional nodule or mass. Very mild areas of atelectasis and groundglass attenuation in the LEFT lower lobe. Pleura: Normal. No pleural effusion. Heart and pericardium: Normal size heart with no pericardial effusion. Mediastinum and ja: No mediastinum or hilar adenopathy. Vessels: Mildly ectatic aorta. No aneurysm. Pulmonary artery is dilated 3.5 cm. Chest wall and lower neck: No soft tissue masses. Upper abdomen: Negative. Osseous structures: No destructive process. CT/CT chest wo con [id number] IMPRESSION: 1. No significant increase in size of the ovoid 9 x 6 mm nodule in the posteri or RIGHT upper lobe. Recommend continued CT evaluation follow-up. Follow-up [facility] CT recommended in 3-4 months. 2. Very mild groundglass attenuation and subsegmental atelectasis LEFT lower l obe. 3. Pulmonary hypertension.
== END 2021-09-20 14:26 | disposition home or self-care (01) ==
PROVIDERS: PCP Family Medicine; Visit Provider Internal Medicine Pulmonary Disease
DX: J45.909 Unspecified asthma, uncomplicated (principal); J98.4 Other disorders of lung; R91.1 Solitary pulmonary nodule; I27.20 Pulmonary hypertension, unspecified
CPT/HCPCS: 71250

== ENCOUNTER 2021-10-08 08:28 | Outpatient (CLI) | payer OTHER, SELFPAY ==
--- NOTE | 2021-10-08 12:55 | PFTS_ITS ---
Date of Study:10/08/21 Date of Dictation: 10/10/2021 MECHANICS: Postbronchodilator forced vital capacity (FVC) is reduced. Postbronchodilator forced expiratory volume in one second (FEV1) is normal. FEV1/FVC is normal. There is no significant response to bronchodilators FLOW VOLUME LOOP:normal . LUNG VOLUMES: Total lung capacity (TLC) is reduced . Residual volume (RV) is normal . DIFFUSING CAPACITY FOR CARBON MONOXIDE:normal . INTERPRETATION: The spirometry is suggestive of nonspecific restriction with elevated FVC and normal ratio. Lung volumes suggestive of mild restriction. Normal gas transfer. Correlate clinically MTDD
== END 2021-10-08 08:29 | disposition home or self-care (01) ==
LOC: RT 08:29
PROVIDERS: PCP Family Medicine; Visit Provider Internal Medicine Pulmonary Disease
DX: J45.909 Unspecified asthma, uncomplicated (principal)
CPT/HCPCS: 94060; 94618; 94726; 94729; J7611

== ENCOUNTER 2021-10-18 09:33 | Outpatient (CLI) | payer OTHER, SELFPAY | END 2021-10-18 09:34 | disposition home or self-care (01) | PROVIDERS: PCP Family Medicine; Visit Provider Internal Medicine Pulmonary Disease | DX: R91.1 Solitary pulmonary nodule (principal) | CPT/HCPCS: 36415 ==

== ENCOUNTER 2022-05-15 13:01 | Outpatient (CLI) | payer OTHER, SELFPAY ==
--- NOTE | 2022-05-15 13:30 | CTR_ITS ---
PROCEDURE INFORMATION: Exam: CT Chest Without Contrast; Diagnostic Exam date and time: 05/15/2022 1:21 PM Age: 56 years old Clinical indication: Condition or disease; Lung condition and disease; Pulmonary nodule, solitary; Additional info: Lung nodule f/u TECHNIQUE: Imaging protocol: Diagnostic computed tomography of the chest without contrast. Radiation optimization: All CT scans at this facility use at least one of these dose optimization techniques: automated exposure control; mA and/or kV adjustment per patient size (includes targeted exams where dose is matched to clinical indication); or iterative reconstruction. COMPARISON: 1. CT angio chest PE protcl [id number] 06/04/2021 9:[address] chest wo con [id number] 09/20/2021 2:38 PM RADIATION DOSE METRICS: Total DLP (mGy-cm): 658.38 FINDINGS: Lungs: Linear band in the left lower lobe is stable. No acute pulmonary consolidation. No central airway obstruction. No peripheral honeycombing. Minor central bronchiectasis. Posterior right upper lobe subpleural nodule is less conspicuous than comparison on axial images, but appears stable on sagittal series 7, image 42. Negative for new pulmonary nodule. Pleural spaces: Unremarkable. No pneumothorax. No pleural effusion. Heart: Unremarkable. No cardiomegaly. No pericardial effusion. Negative for coronary artery calcifications. Lymph nodes: Unremarkable. No enlarged lymph nodes. Vasculature: Unremarkable. No aortic aneurysm. Liver: 8 mm circumscribed low-attenuation lesion in the right hepatic lobe is stable. Bones/joints: Unremarkable. No acute fracture. Soft tissues: Unremarkable. CT/CT chest wo con [id number] IMPRESSION: 1. No change in right upper lobe pulmonary nodule. Outpatient noncontrast CT chest follow-up in 12 months recommended. 2. No acute chest abnormality identified.
== END 2022-05-15 13:02 | disposition home or self-care (01) ==
LOC: RAD 13:03
PROVIDERS: PCP Family Medicine; Visit Provider Internal Medicine Pulmonary Disease
DX: R91.1 Solitary pulmonary nodule (principal)
CPT/HCPCS: 71250

== ENCOUNTER 2023-04-17 09:14 | Outpatient (CLI) | payer OTHER, SELFPAY ==
--- NOTE | 2023-04-17 09:19 | MM_ITS ---
WS: [id number] BILATERAL SCREENING DIGITAL TOMOSYNTHESIS MAMMOGRAM WITH CAD HISTORY: SCREENING COMPARISON: 10/02/2020 and 06/04/2017 Bilateral CC and MLO views with tomosynthesis and synthetic mammography submitted. Computer aided det ection analyzed. Breast composition: The breasts are heterogeneously dense, which may obscure small masses. No suspici ous masses, microcalcifications or architectural distortion. IMPRESSION: MM/[place] [id number] BI-RADS: 1-Negative FOLLOW UP: 1 Year Follow-up
== END 2023-04-17 09:15 | disposition home or self-care (01) ==
LOC: RAD 09:15
PROVIDERS: PCP Family Medicine; Visit Provider Family Medicine
DX: Z12.31 Encounter for screening mammogram for malignant neoplasm of breast (principal)
CPT/HCPCS: 77063; 77067

== ENCOUNTER 2024-06-01 13:27 | Outpatient (CLI) | payer OTHER, SELFPAY ==
--- NOTE | 2024-06-01 14:00 | MM_ITS ---
WS: [email or web address] BILATERAL 3D TOMOSYNTHESIS DIGITAL SCREENING MAMMOGRAPHY WITH CAD CLINICAL INFORMATION: Z12.39 - Encounter for other screening for malignant neop... HISTORY: Screening mammogram. No current complaints. COMPARISON: 2022 TECHNIQUE: Bilateral CC and MLO views. FINDINGS: The breasts are composed of heterogeneous fibroglandular density tissue, which can limit the detectio n of small underlying mass lesions. Several clustered nodules lower outer LEFT breast progressed comp ared to the prior examinations. Recommend LEFT breast diagnostic mammography and ultrasound in furthe r evaluation. MM/MM [facility] tomosynthesis [id number] IMPRESSION: DENSITY: The breasts are heterogeneously dense, which may obscure small masses. BI-RADS: 0 - Incomplete: Need additional imaging evaluation FOLLOW UP: Need Additional Imaging Recommend LEFT breast diagnostic mammography and ultrasound further evaluation.
== END 2024-06-01 13:28 | disposition home or self-care (01) ==
LOC: RAD 13:28
PROVIDERS: PCP Family Medicine; Visit Provider Obstetrics & Gynecology
DX: Z12.31 Encounter for screening mammogram for malignant neoplasm of breast (principal); R92.333 Mammographic heterogeneous density, bilateral breasts; N63.23 Unspecified lump in the left breast, lower outer quadrant
CPT/HCPCS: 77063; 77067

== ENCOUNTER 2024-07-04 12:47 | Outpatient (CLI) | payer OTHER, SELFPAY ==
--- NOTE | 2024-07-04 13:00 | MM_ITS ---
WS: [id number] LEFT 3D TOMOSYNTHESIS DIGITAL MAMMOGRAPHY WITH CAD CLINICAL INFORMATION: R92.8 - Other abnormal and inconclusive findings on diagn... HISTORY: Additional views COMPARISON: 06/01/2024 TECHNIQUE: 3 views of the left breast were obtained. FINDINGS: The left breast is composed of heterogeneous fibroglandular density tissue, which can limit the detec tion of small underlying mass lesions. ULTRASOUND BREAST LEFT TECHNIQUE: Ultrasound left breast focused area of concern. CLINICAL INFORMATION: R92.8 - Other abnormal and inconclusive findings on diagn... FINDINGS: Ultrasound LEFT breast lower outer quadrant area of concern. Small hypoechoic lesion at the 3 o'clock position 3 cm from the nipple technically indeterminate but likely a small complex cyst. This measur es approximately 2 x 4 x 3 mm recommend 6-month follow-up to confirm stability. Small amount of throu gh-transmission. No other suspicious abnormalities MM/MM diag LT tomosynthesis [id number] IMPRESSION: DENSITY: The breasts are heterogeneously dense, which may obscure small masses. BI-RADS: 3 - Probably Benign FOLLOW UP: 6 Month Follow-up Recommend LEFT breast diagnostic mammography and ultrasound in 6 months.
--- NOTE | 2024-07-04 13:30 | US_ITS ---
WS: [id number] LEFT 3D TOMOSYNTHESIS DIGITAL MAMMOGRAPHY WITH CAD CLINICAL INFORMATION: R92.8 - Other abnormal and inconclusive findings on diagn... HISTORY: Additional views COMPARISON: 06/01/2024 TECHNIQUE: 3 views of the left breast were obtained. FINDINGS: The left breast is composed of heterogeneous fibroglandular density tissue, which can limit the detec tion of small underlying mass lesions. ULTRASOUND BREAST LEFT TECHNIQUE: Ultrasound left breast focused area of concern. CLINICAL INFORMATION: R92.8 - Other abnormal and inconclusive findings on diagn... FINDINGS: Ultrasound LEFT breast lower outer quadrant area of concern. Small hypoechoic lesion at the 3 o'clock position 3 cm from the nipple technically indeterminate but likely a small complex cyst. This measur es approximately 2 x 4 x 3 mm recommend 6-month follow-up to confirm stability. Small amount of throu gh-transmission. No other suspicious abnormalities US/US breast LT limited* [id number] IMPRESSION: DENSITY: The breasts are heterogeneously dense, which may obscure small masses. BI-RADS: 3 - Probably Benign FOLLOW UP: 6 Month Follow-up Recommend LEFT breast diagnostic mammography and ultrasound in 6 months.
== END 2024-07-04 12:48 | disposition home or self-care (01) ==
LOC: RAD 12:48
PROVIDERS: PCP Family Medicine; Visit Provider Obstetrics & Gynecology
DX: R92.8 Other abnormal and inconclusive findings on diagnostic imaging of breast (principal); R92.322 Mammographic fibroglandular density, left breast; R92.332 Mammographic heterogeneous density, left breast; N64.9 Disorder of breast, unspecified
CPT/HCPCS: 76642; 77061; G0279

== ENCOUNTER → 2025-02-09 09:43 | Outpatient (BNVA) | payer OTHER, SELFPAY | PROVIDERS: PCP Family Medicine; Visit Provider Family Medicine | DX: E03.9 Hypothyroidism, unspecified (principal); R07.89 Other chest pain; R00.0 Tachycardia, unspecified | CPT/HCPCS: 80053; 80061; 84443; 85025 ==